=== PATIENT | male | born 1965 | race Caucasian/White ===

== ENCOUNTER 2017-02-24 16:17 | Emergency (ER) | payer SELFPAY ==
[2017-02-24] MEDS ORDERED: Ketorolac INJ* 30 MG/ML 1 ML VIAL IV PUSH ONE (16:38)
[2017-02-24] MEDS ORDERED: Morphine INJ* 4 MG/ML 1 ML CARPUJECT IV ONE (16:38)
--- NOTE | 2017-02-24 16:39 | ED ---
Lower Extremity - HPI Summary HPI Summary: 51M presents with right ankle injury s/p falling off playground. He states that he twisted his ankle outward when he tried to step off a spinning structure. He states he has numbness over the area. pain is 10/10. He denies any previous injury to the area. He has no medical conditions. His last meal was breakfast this morning. He has not taken anything for pain. no other injury. has obvious deformity to ankle on presentation. - History of Current Complaint Chief Complaint: EDExtremityLower Stated Complaint: FALL, LEG PAIN Time Seen by Provider: 02/24/17 16:30 Pain Intensity: 10 - Allergies/Home Medications Allergies/Adverse Reactions: Allergies Allergy/AdvReac Type Severity Reaction Status Date / Time No Known Allergies Allergy Verified 02/24/17 16:28 PMH/Surg Hx/FS Hx/Imm Hx Endocrine/Hematology History: Denies: Hx Anticoagulant Therapy Cardiovascular History: Denies: Hx Myocardial Infarction Infectious Disease History: No Infectious Disease History: Denies: Traveled Outside the [place] in Last 30 Days - Family History Known Family History: Positive: Hypertension - Social History Alcohol Use: Occasionally Substance Use Type: Reports: None Smoking Status (MU): Heavy Every Day Tobacco Smoker Review of Systems Negative: Fever Negative: Chest Pain Negative: Shortness Of Breath Positive: Myalgia - right ankle pain All Other Systems Reviewed And Are Negative: Yes Physical Exam Triage Information Reviewed: Yes Vital Signs On Initial Exam: Initial Vitals Temp Pulse Resp BP Pulse Ox 98.9 F 63 18 156/89 95 02/24/17 16:26 02/24/17 16:26 02/24/17 16:26 02/24/17 16:26 02/24/17 16:26 Vital Signs Reviewed: Yes Appearance: Positive: Pain Distress Skin: Positive: Warm, Dry Head/Face: Positive: Normal Head/Face Inspection Eyes: Positive: Normal, EOMI, ANTOINETTE, Conjunctiva Clear ENT: Positive: Normal ENT inspection, Pharynx normal, TMs normal Respiratory/Lung Sounds: Positive: Clear to Auscultation, Breath Sounds Present Cardiovascular: Positive: Normal, RRR Musculoskeletal: Positive: Limited @ - right ankle, Other - deformity of right ankle, good pulses, capillary refill<2 secs, sensation grossly intact Psychiatric: Positive: Normal - [place] Coma Scale Coma Scale Total: 15 Procedures - Splinting Location: right ankle Hand-Made Type: orthoglass Splint: posterior walking Pre-Proc Neuro Vasc Exam: normal Post-Proc Neuro Vasc Exam: normal - Joint Reduction Joint Reduction Site: ankle (R) Conscious Sedation: Yes - dr curry Reduction Attempts: 1 Pre-Procedure NV Exam: Yes Post Joint Reduction Film: joint reduced Diagnostics - Vital Signs Vital Signs Temp Pulse Resp BP Pulse Ox 02/24/17 16:26 98.9 F 63 18 156/89 95 - Laboratory Result Diagrams: 02/24/17 17:14 02/24/17 17:14 Lab Statement: Any lab studies that have been ordered have been reviewed, and results considered in the medical decision making process. - Radiology ankle Xray Interpretation: Positive (See Comments) - IMPRESSION: Posterior and lateral dislocation of the talus with fracture of the fibula. Radiology Interpretation Completed By: Radiologist reduced ankle Xray Interpretation: Positive (See Comments) - IMPRESSION: Reduction of previously identified talar dislocation. Radiology Interpretation Completed By: Radiologist Lower Extremity Course/Dx - Course Course Of Treatment: 51M presents with right ankle injury s/p falling off playground. He states that he twisted his ankle outward when he tried to step off a spinning structure. He states he has numbness over the area. pain is 10/ 10. He denies any previous injury to the area. He has no medical conditions. His last meal was breakfast this morning. He has not taken anything for pain. no other injury. has obvious deformity to ankle on presentation. neurovascular intact. xray shows fibula fx with talus dislocation, spoke with dr ross who looked at films and said to reduce the joint. with dr curry assistance reduced joint under conscious sedation. placed in posterior walking and gave crutches. will have follow up with ortho. patient understands and agrees with plan. - Diagnoses Differential Diagnosis/HQI/PQRI: Positive: Fracture (Closed), Sprain, Strain Provider Diagnoses: Fracture of fibula, right, closed, Dislocation of right talus Discharge - Discharge Plan Condition: Good Disposition: HOME Prescriptions: oxyCODONE/Acetamin 5/325 MG* [Percocet 5/325 TAB*] 1 tab PO Q6H PRN #20 tab MDD 4 PRN Reason: Pain Patient Education Materials: Ankle Fracture (ED) Referrals: No Primary Care Phys,NOPCP [Primary Care Provider] - Alexander Ross MD [Medical Doctor] - Additional Instructions: Use crutches and stay nonweight bearing Keep splint on area and keep dry Call ortho office tomorrow to set up appointment for follow up Use ibuprofen for pain every 6 hours and use narcotic for breakthrough pain Ice, elevate Return to ED if develop any new or worsening symptoms
[2017-02-24] MEDS ORDERED: Ondansetron INJ* 2 MG/ML VIAL IV ONE (16:48)
[2017-02-24] MEDS ORDERED: NS 0.9% 1000 ML* 1,000 ML IV ONE (16:49)
[2017-02-24] MEDS ORDERED: fentaNYL* 50 MCG/ML 2 ML VIAL (100 MCG VIAL) ONE (17:30)
[2017-02-24] MEDS ORDERED: Flumazenil* 0.1 MG/ML 5 ML MDV ONE (17:30)
[2017-02-24] MEDS ORDERED: Midazolam* 1 MG/ML 10 ML VIAL (10 MG) ONE (17:30)
[2017-02-24] MEDS ORDERED: Naloxone* 0.4 MG/ML 10 ML VIAL ONE (17:30)
[2017-02-24 17:32] LABS: Hematocrit 48 % (42-52); Hemoglobin 16.7 g/dl (14.0-18.0); Mean Corpuscular HGB Conc 35 g/dl (31-36); Mean Corpuscular Hemoglobin 31 pg (27-31); Mean Corpuscular Volume 89 fL (80-94); Mean Platelet Volume 8 um3 (7.4-10.4); Red Blood Count 5.38 10^6/ul (4.0-5.4); Red Cell Distribution Width 13 % (10.5-15); White Blood Count 12.7 10^3/ul (3.5-10.8)
[2017-02-24 17:46] LABS: Albumin 4.1 g/dL (3.2-5.2); BUN/Creatinine Ratio 14.6 (8-20); Calcium 9.4 mg/dL (8.6-10.3); EGFR African American 116.8 (>60); EGFR Non-African American 90.9 (>60); Globulin 2.5 g/dL (2-4); Potassium 4.1 mmol/L (3.5-5.0); Total Bilirubin 0.8 mg/dL (0.2-1.0); Total Protein 6.6 g/dL (6.4-8.9)
--- NOTE | 2017-02-24 18:01 | RAD ---
Indication: Right ankle injury. 3 views of the right ankle demonstrates posterior lateral dislocation of the talus relative to the tibia. Fracture of the fibula is noted. IMPRESSION: Posterior and lateral dislocation of the talus with fracture of the fibula.
--- NOTE | 2017-02-24 18:02 | RAD ---
Indication: Right leg pain. 2 views of the right lower leg demonstrates dislocation of the talus. Fracture of the fibula is noted. The proximal tibia and fibula are unremarkable. IMPRESSION: Ankle x-rays demonstrates dislocated talus. The proximal tibia and fibula are grossly unremarkable.
--- NOTE | 2017-02-24 19:01 | RAD ---
Indication: Right talus dislocation 3 views of the right ankle demonstrates reduction of the previously identified dislocation of the talus. There is a cast noted in place. IMPRESSION: Reduction of previously identified talar dislocation.
[2017-02-24] MEDS ORDERED: oxyCODONE/Acetamin 5/325 MG* TAB PO ONE (19:18)
[2017-02-24 20:02] VITALS: BP 132/87
--- NOTE | 2017-02-25 08:46 | ED ---
Blair Peña Angela, scribed for Lexx Khan MD on 02/24/17 at 1810 . Progress - Progress Note Progress Note: I was asked by the physician marketing operations assistant, Malaika Pacheco, to do a conscious sedation for posterior and lateral dislocation of the talus with fracture of the right fibula. Consent for sedation was obtained. Reduction was done without any complications. The post reduction XR shows good reduction. The pt's pain has improved. He is more alert and oriented. The follow up treatment will be done by ROSENDO Alfredo. There was a posterior splint placed with no complications, the pt was pre and post procedure neurovascularly intact. Course/Dx - Diagnoses Provider Diagnoses: Fracture of fibula, right, closed Procedures - Splinting Location: right ankle Hand-Made Type: orthoglass Splint: posterior walking Pre-Proc Neuro Vasc Exam: normal Post-Proc Neuro Vasc Exam: normal - Joint Reduction Joint Reduction Site: ankle (R) Conscious Sedation: Yes - dr khan Reduction Attempts: 1 Pre-Procedure NV Exam: Yes Post Joint Reduction Film: joint reduced The documentation as recorded by the Blair crystal Angela accurately reflects the service I personally performed and the decisions made by Bill calderón Walter, MD.
== END 2017-02-24 20:02 | disposition home or self-care (01) ==
LOC: ED 16:17
DX: S82.401A Unspecified fracture of shaft of right fibula, initial encounter for closed fracture (principal); S93.04XA Dislocation of right ankle joint, initial encounter; W09.8XXA Fall on or from other playground equipment, initial encounter; Y93.9 Activity, unspecified; Y92.9 Unspecified place or not applicable
CPT/HCPCS: 36415; 80053; 85025; 96374; 96375; 99283; A9270-GY; J1885; J2250; J2270; J2310; J2405; J3010